=== PATIENT | female | born 1955 | race Two or more races ===

== ENCOUNTER 2017-11-09 23:05 | Emergency (ER) | END 2017-11-10 03:47 | disposition home or self-care (01) ==

== ENCOUNTER 2019-07-03 04:58 | Inpatient (IN) | payer OTHER ==
[~2019-07-03] VITALS: Ht 152.4 cm; Wt 84.8 kg
[~2019-07-03 04:58] MED LIST: AMLO2.5T78 ORAL; AMOX500C2 PO; ASPI-1046 PO; ATOR-2 PO; D-ME473S2 PO; DEC2 PO; DOCU250C58 PO; IBUP-1542 PO; INSU100I33 SC; LOSA50TA14 PO; METF500T17 ORAL; METF500T24 PO; NAPR-685 PO; NPH,100V SC; TRAM50TA2 PO; [UNRECOGNIZED DRUG - CODE] MC
[2019-07-03] MEDS ORDERED: morphine 4 MG/ML VIAL IV STA ×2 (06:27→11:53)
[2019-07-03] MEDS ORDERED: ONDANSETRON 4 MG INJ IV STA (06:27)
[2019-07-03] MEDS ORDERED: ACETAMINOPHEN 325 MG TAB PO PRN (07:30)
[2019-07-03] MEDS ORDERED: ASPIRIN 325 MG TAB PO ONE (07:30)
[2019-07-03] MEDS ORDERED: ONDANSETRON 4 MG INJ IV PRN (07:30)
[2019-07-03 12:29] VITALS: BP 153/79; PULSE 64; RESP 20
[2019-07-03 12:45] VITALS: Ht 152.4 cm; Wt 84.8 kg
[2019-07-03] MEDS ORDERED: GLUCOSE GEL 15 GRAM TUBE BUCCAL PRN (15:00)
[2019-07-03] MEDS ORDERED: DEXTROSE 50% 50 ML SYRINGE IV PRN ×2 (15:00)
[2019-07-03] MEDS ORDERED: GLUCAGON 1 MG INJ IM PRN (15:00)
[2019-07-03] MEDS ORDERED: GLUCOSE GEL 15 GRAM TUBE PO PRN ×2 (15:00)
[2019-07-03 15:59] VITALS: BP 137/88; PULSE 68; RESP 18
[2019-07-03] MEDS: INSULIN ASPART [NOVOLOG] 3 ML PEN SC SCH ×2 (17:39→21:01)
[2019-07-03 19:56] VITALS: BP 142/75; PULSE 66; RESP 18
[2019-07-03] MEDS: INSULIN GLARGINE [LANTus] (100 UNITS/ML) SYG SC SCH (21:00)
[2019-07-03] MEDS: ACCU-CHEK XX SCH (21:01)
[2019-07-03] MEDS: traMADol 50 MG TAB PO PRN (22:00)
[2019-07-04] VITALS: BP 145/78; RESP 20
[2019-07-04 04:00] VITALS: BP 111/58; PULSE 66; RESP 18
[2019-07-04 07:33] VITALS: BP 130/80; PULSE 69; RESP 22
[2019-07-04] MEDS: ACCU-CHEK XX SCH ×4 (07:40→20:15)
[2019-07-04] MEDS ORDERED: metFORMIN 500 MG TAB PO SCH (07:55)
[2019-07-04] MEDS: INSULIN ASPART [NOVOLOG] 3 ML PEN SC SCH ×4 (08:01→20:15)
[2019-07-04] MEDS: AMLODIPINE 10 MG TAB PO SCH (08:11)
[2019-07-04] MEDS: ASPIRIN (EC) 81 MG TAB PO SCH (08:11)
[2019-07-04] MEDS: traMADol 50 MG TAB PO PRN ×2 (08:13→20:23)
[2019-07-04] MEDS: ENOXAPARIN 40 MG/0.4 ML SYG SC SCH (08:19)
[2019-07-04 11:49] VITALS: BP 113/72; RESP 22
[2019-07-04 15:06] VITALS: BP 118/71; PULSE 74; RESP 22
[2019-07-04] MEDS ORDERED: SOD CHLORIDE 0.9% 1,000 ML IV SCH (15:37)
[2019-07-04 19:53] VITALS: BP 135/78; PULSE 81; RESP 20
[2019-07-04] MEDS: INSULIN GLARGINE [LANTus] (100 UNITS/ML) SYG SC SCH (20:26)
[2019-07-04] MEDS: morphine 2 MG INJ IV PRN (22:46)
[2019-07-04] MEDS ORDERED: ONDANSETRON 4 MG INJ IV PRN (23:00)
[2019-07-05] VITALS: BP 127/75; PULSE 97; RESP 22
[2019-07-05 04:00] VITALS: BP 128/69; PULSE 69; RESP 20
[2019-07-05 07:28] VITALS: BP 137/74; PULSE 70; RESP 15
[2019-07-05] MEDS: INSULIN ASPART [NOVOLOG] 3 ML PEN SC SCH ×4 (07:55→20:35)
[2019-07-05] MEDS: ACCU-CHEK XX SCH ×4 (07:59→20:35)
[2019-07-05] MEDS: AMLODIPINE 10 MG TAB PO SCH (08:02)
[2019-07-05] MEDS: ASPIRIN (EC) 81 MG TAB PO SCH (08:02)
[2019-07-05] MEDS ORDERED: CLOPIDOGREL 75 MG TAB PO SCH (09:00)
[2019-07-05] MEDS: PROPYLENE GLYCOL/PEG 5 ML OPHTH DROPS BOTH EYES PRN ×2 (09:09→17:53)
[2019-07-05] MEDS: ENOXAPARIN 40 MG/0.4 ML SYG SC SCH (09:17)
[2019-07-05 11:19] VITALS: BP 115/72; PULSE 72; RESP 16
[2019-07-05] MEDS: DEXAMETHASONE 4 MG/ML 1 ML INJ IV SCH (15:51)
[2019-07-05 19:26] VITALS: BP 130/75; PULSE 90; RESP 16
[2019-07-05] MEDS: INSULIN GLARGINE [LANTus] (100 UNITS/ML) SYG SC SCH (20:33)
[2019-07-06] VITALS: BP 131/66; PULSE 86; RESP 18
[2019-07-06] MEDS: DEXAMETHASONE 4 MG/ML 1 ML INJ IV SCH ×5 (00:19→23:50)
[2019-07-06] MEDS: morphine 2 MG INJ IV PRN (00:47)
[2019-07-06 05:33] VITALS: BP 128/71; PULSE 90; RESP 17
[2019-07-06] MEDS: PROPYLENE GLYCOL/PEG 5 ML OPHTH DROPS BOTH EYES PRN ×3 (06:51→20:55)
[2019-07-06 07:21] VITALS: BP 138/82; PULSE 90; RESP 16
[2019-07-06] MEDS: ACCU-CHEK XX SCH ×4 (07:25→21:05)
[2019-07-06] MEDS: metFORMIN 500 MG TAB PO SCH ×2 (08:52→17:47)
[2019-07-06] MEDS: INSULIN ASPART [NOVOLOG] 3 ML PEN SC SCH ×4 (08:56→20:44)
[2019-07-06] MEDS: ASPIRIN (EC) 81 MG TAB PO SCH (08:57)
[2019-07-06] MEDS: ENOXAPARIN 40 MG/0.4 ML SYG SC SCH (08:57)
[2019-07-06] MEDS ORDERED: NPH, HUMAN INSULIN ISOPHANE 3ML VIAL SC SCH (09:00)
[2019-07-06] MEDS: AMLODIPINE 10 MG TAB PO SCH (09:03)
[2019-07-06 11:10] VITALS: BP 146/73; PULSE 91; RESP 16
[2019-07-06] MEDS: NPH, HUMAN INSULIN ISOPHANE 3ML VIAL SC SCH ×3 (12:43→23:46)
[2019-07-06] MEDS ORDERED: DOCUSATE SODIUM 100 MG CAP PO PRN (13:00)
[2019-07-06] MEDS: POLYETHYLENE GLYCOL 17 GM PACKET PO SCH (13:05)
[2019-07-06 16:00] VITALS: BP 128/76; PULSE 91; RESP 15
[2019-07-06 20:00] VITALS: BP 133/80; PULSE 90; RESP 16
[2019-07-06] MEDS: INSULIN GLARGINE [LANTus] (100 UNITS/ML) SYG SC SCH (20:43)
[2019-07-06] MEDS ORDERED: INSULIN ASPART [NOVOLOG] 3 ML PEN SC ONE (21:00)
[2019-07-07 01:05] VITALS: BP 119/65; PULSE 77
[2019-07-07] MEDS: DEXAMETHASONE 4 MG/ML 1 ML INJ IV SCH ×4 (06:11→23:59)
[2019-07-07] MEDS: NPH, HUMAN INSULIN ISOPHANE 3ML VIAL SC SCH ×3 (06:15→17:38)
[2019-07-07 06:19] VITALS: BP 142/74; PULSE 92
[2019-07-07 07:23] VITALS: BP 125/64; PULSE 72; RESP 20
[2019-07-07] MEDS: ACCU-CHEK XX SCH ×4 (07:25→20:35)
[2019-07-07] MEDS: AMLODIPINE 10 MG TAB PO SCH (08:34)
[2019-07-07] MEDS: POLYETHYLENE GLYCOL 17 GM PACKET PO SCH (08:34)
[2019-07-07] MEDS: metFORMIN 500 MG TAB PO SCH ×2 (08:34→17:33)
[2019-07-07] MEDS: ASPIRIN (EC) 81 MG TAB PO SCH (08:34)
[2019-07-07] MEDS: INSULIN ASPART [NOVOLOG] 3 ML PEN SC SCH ×4 (08:41→20:34)
[2019-07-07] MEDS: ENOXAPARIN 40 MG/0.4 ML SYG SC SCH (08:42)
[2019-07-07 11:43] VITALS: BP 132/73; PULSE 76; RESP 20
[2019-07-07] MEDS: traMADol 50 MG TAB PO PRN (12:03)
[2019-07-07] MEDS: PROPYLENE GLYCOL/PEG 5 ML OPHTH DROPS BOTH EYES PRN (12:10)
[2019-07-07 15:43] VITALS: BP 114/68; PULSE 78; RESP 20
[2019-07-07 20:00] VITALS: BP 134/69; PULSE 94; RESP 18
[2019-07-07] MEDS: INSULIN GLARGINE [LANTus] (100 UNITS/ML) SYG SC SCH (20:33)
[2019-07-07] MEDS ORDERED: INSULIN ASPART [NOVOLOG] 3 ML PEN SC ONE (21:00)
[2019-07-07] MEDS ORDERED: ACCU-CHEK XX ONE (21:00)
[2019-07-08] VITALS: BP 120/71; PULSE 75; RESP 18
[2019-07-08] MEDS: PROPYLENE GLYCOL/PEG 5 ML OPHTH DROPS BOTH EYES PRN
[2019-07-08] MEDS: NPH, HUMAN INSULIN ISOPHANE 3ML VIAL SC SCH ×5 (00:07→21:13)
[2019-07-08 03:46] VITALS: BP 114/64; PULSE 70; RESP 18
[2019-07-08] MEDS: DEXAMETHASONE 4 MG/ML 1 ML INJ IV SCH ×3 (05:45→17:44)
[2019-07-08 07:31] VITALS: BP 132/73; PULSE 65; RESP 18
[2019-07-08] MEDS: ACCU-CHEK XX SCH ×4 (08:19→20:55)
[2019-07-08] MEDS: INSULIN ASPART [NOVOLOG] 3 ML PEN SC SCH ×4 (08:22→21:04)
[2019-07-08] MEDS: POLYETHYLENE GLYCOL 17 GM PACKET PO SCH (08:27)
[2019-07-08] MEDS: AMLODIPINE 10 MG TAB PO SCH (08:27)
[2019-07-08] MEDS: metFORMIN 500 MG TAB PO SCH (08:27)
[2019-07-08] MEDS: ASPIRIN (EC) 81 MG TAB PO SCH (08:27)
[2019-07-08] MEDS: ENOXAPARIN 40 MG/0.4 ML SYG SC SCH (09:00)
[2019-07-08 11:48] VITALS: BP 132/72; PULSE 67; RESP 18
[2019-07-08 15:11] VITALS: BP 119/63; PULSE 59; RESP 18
[2019-07-08] MEDS ORDERED: INSULIN GLARGINE [LANTus] (100 UNITS/ML) SYG SC ONE (17:30)
[2019-07-08 20:00] VITALS: BP 112/69; PULSE 65; RESP 18
[2019-07-08] MEDS: DEXAMETHASONE 2 MG TAB PO SCH (21:02)
[2019-07-08] MEDS: INSULIN GLARGINE [LANTus] (100 UNITS/ML) SYG SC SCH (21:03)
[2019-07-09] VITALS: BP 133/72; PULSE 62; RESP 18
[2019-07-09 04:00] VITALS: BP 112/60; PULSE 54; RESP 18
[2019-07-09] MEDS: DEXAMETHASONE 2 MG TAB PO SCH ×3 (05:56→23:32)
[2019-07-09] MEDS: NPH, HUMAN INSULIN ISOPHANE 3ML VIAL SC SCH ×3 (05:58→23:42)
[2019-07-09 07:12] VITALS: BP 120/70; PULSE 67; RESP 17
[2019-07-09] MEDS: ACCU-CHEK XX SCH ×4 (07:25→21:34)
[2019-07-09] MEDS: INSULIN ASPART [NOVOLOG] 3 ML PEN SC SCH ×4 (07:55→21:34)
[2019-07-09] MEDS: AMLODIPINE 10 MG TAB PO SCH (10:19)
[2019-07-09] MEDS: ASPIRIN (EC) 81 MG TAB PO SCH (10:19)
[2019-07-09] MEDS: POLYETHYLENE GLYCOL 17 GM PACKET PO SCH (10:19)
[2019-07-09] MEDS: ENOXAPARIN 40 MG/0.4 ML SYG SC SCH (10:34)
[2019-07-09 11:05] VITALS: BP 122/69; PULSE 75; RESP 18
[2019-07-09 15:09] VITALS: BP 114/63; PULSE 80; RESP 17
[2019-07-09 20:11] VITALS: BP 126/81; PULSE 83; RESP 18
[2019-07-09] MEDS: INSULIN GLARGINE [LANTus] (100 UNITS/ML) SYG SC SCH (21:34)
[2019-07-10 00:06] VITALS: BP 127/74; PULSE 62; RESP 18
[2019-07-10 04:25] VITALS: BP 113/67; PULSE 62; RESP 18
[2019-07-10] MEDS: DEXAMETHASONE 2 MG TAB PO SCH ×2 (06:20→13:17)
[2019-07-10] MEDS: NPH, HUMAN INSULIN ISOPHANE 3ML VIAL SC SCH ×2 (06:26→13:16)
[2019-07-10] MEDS: PROPYLENE GLYCOL/PEG 5 ML OPHTH DROPS BOTH EYES PRN (06:39)
[2019-07-10 07:08] VITALS: BP 120/79; PULSE 59; RESP 15
[2019-07-10] MEDS: ACCU-CHEK XX SCH ×3 (07:25→17:25)
[2019-07-10] MEDS: INSULIN ASPART [NOVOLOG] 3 ML PEN SC SCH ×3 (07:55→19:17)
[2019-07-10] MEDS: ASPIRIN (EC) 81 MG TAB PO SCH (08:59)
[2019-07-10] MEDS: POLYETHYLENE GLYCOL 17 GM PACKET PO SCH (09:00)
[2019-07-10] MEDS: AMLODIPINE 10 MG TAB PO SCH (09:00)
[2019-07-10] MEDS: ENOXAPARIN 40 MG/0.4 ML SYG SC SCH (09:04)
[2019-07-10 11:04] VITALS: BP 114/67; PULSE 56; RESP 16
[2019-07-10 15:04] VITALS: BP 107/62; PULSE 65; RESP 15
== END 2019-07-10 19:20 | disposition home health service (06) | DRG 65 ==
LOC: E/R 04:58 → TEL 07:10
PROVIDERS: ADMIT Internal Medicine; ATTEND Family Medicine
DX: I63.9 Cerebral infarction, unspecified (principal); G81.94 Hemiplegia, unspecified affecting left nondominant side; E11.65 Type 2 diabetes mellitus with hyperglycemia; I10 Essential (primary) hypertension; H53.8 Other visual disturbances; R29.707 NIHSS score 7; T38.0X5A Adverse effect of glucocorticoids and synthetic analogues, initial encounter; Y92.230 Patient room in hospital as the place of occurrence of the external cause; Z86.73 Personal history of transient ischemic attack (TIA), and cerebral infarction without residual deficits
CPT/HCPCS: 36415; 70450; 70544; 70549; 70551; 70552; 71045; 72141; 72142; 80048; 80053; 80061; 80069; 80307; 81003; 82607; 82962; 83036; 83690; 83735; 84443; 84484; 85025; 85610; 85730; 86592; 92610; 93005; 93306; 96374; 96375; 97110; 97116; 97162; 97530; J1100; J1650; J1815; J2270; J2405; J7030